=== PATIENT | female | born 1950 | race Two or more races ===

== ENCOUNTER 2025-01-15 12:20 | Inpatient (IN) | payer OTHER, MEDICAID ==
[~2025-01-15] VITALS: Ht 167.6 cm; Wt 133.2 kg
--- NOTE | 2025-01-15 12:29 | ED.PDOC ---
History of Present Illness HPI Comments 74 year old female with a history of Sciatica, CVA, HTN, DM, and Vertigo was BIBA for the c/c of 02/01 Lower Back pain. Pt states that her pain started yesterday but has proceeded to worsen today with no alleviating factors at this time. No other symptoms or modifying factors reported at this time. Time Seen by MD: 12:26 Reviewed Notes: Nurses Notes, Waste Disposal Attendant Notes, Medications, Allergies Allergies: Coded Allergies: NO KNOWN ALLERGIES (Unverified , 01/15/25) Information Source: Patient, Emergency Med Personnel Mode of Arrival: EMS Severity: Moderate Timing: Days Duration: Since onset, Days Prehospital treatment: None Past Medical History PAST MEDICAL HISTORY: Arthritis, CVA, DM, HTN Surgical History: NAT INSTRUCTOR History: No Pertinent NAT INSTRUCTOR History Family History Family History: Reviewed,noncontributory to illness, No family hx of Cancer, No family hx of DM, No family hx of Heart randa, No family hx of HTN, No family hx ofKidney randa, No family hx of Liver randa, No family hx of Lung randa, No family hx of Stroke Social History Smoker: Non-Smoker Alcohol: Denies ETOH Use Drugs: Denies Drug Use Lives In: Home Constitutional: denies: chills, diaphoresis, fatigue, fever, malaise, sweats, weakness, others EENTM: denies: blurred vision, double vision, ear bleeding, ear discharge, ear drainage, ear pain, ear ringing, eye pain, eye redness, hearing loss, mouth pain, mouth swelling, nasal discharge, nose bleeding, nose congestion, nose pain, photophobia, tearing, throat pain, throat swelling, voice changes, others Respiratory: denies: cough, hemoptysis, orthopnea, SOB at rest, shortness of breath, SOB with excertion, stridor, wheezing, others Cardiovascular: denies: chest pain, dizzy spells, diaphoresis, Dyspnea on exertion, edema, irregular heart beat, left arm pain, lightheadedness, palpitations, PND, syncope, others Gastrointestinal: denies: abdomen distended, abdominal pain, blood streaked bowels, constipated, diarrhea, dysphagia, difficulty swallowing, hematemesis, melena, nausea, poor appetite, poor fluid intake, rectal bleeding, rectal pain, vomiting, others Genitourinary: denies: abnormal vagina bleeding, burning, dyspareunia, dysuria, flank pain, frequency, hematuria, incontinence, pain, , vagina discharge, urgency, others Neurological: denies: dizziness, fainting, headache, left sided numbness, left sided weakness, numbness, paresthesia, pre-existing deficit, right sided numbness, right sided weakness, seizure, speech problems, tingling, tremors, weakness, others Musculoskeletal: reports: back pain; denies: gout, joint pain, joint swelling, muscle pain, muscle stiffness, neck pain, others Integumetry: denies: bruises, change in color, change in hair/nails, dryness, laceration, lesions, lumps, rash, wounds, others Allergic/Immunocompromised: denies: Difficulty Healing, Frequent Infections, Hives, Itching, others Hematologic/Lymphatic: denies: anemia, blood clots, easy bleeding, easy bruising, swollen glands, others Endocrine: denies: excessive hunger, excessive sweating, excessive thirst, excessive urination, flushing, intolerance to cold, intolerance to heat, unexplained weight gain, unexplained weight loss, others Psychiatric: denies: anxiety, bipolar disorder, depression, hopeless, panic disorder, schizophrenia, sleepless, suicidal, others All Other Systems: Reviewed and Negative Physical Exam General Appearance: Moderate Distress, Obese HEENT: Normal ENT Inspection, Pharynx Normal, TMs Normal Neck: Full Range of Motion, Non-Tender, Normal, Normal Inspection Respiratory: Chest Non-Tender, Lungs Clear, No Accessory Muscle Use, No Respiratory Distress, Normal Breath Sounds Cardiovascular: No Edema, No JVD, No Murmur, No Gallop, Normal Peripheral Pulses, Regular Rate/Rhythm Breast Exam: Deferred Gastrointestinal: No Organomegaly, Non Tender, No Pulsatile Mass, Normal Bowel Sounds, Soft Genitalia: Deferred Pelvic: Deferred Rectal: Deferred Extremities: No calf tenderness, Normal capillary refill, No pedal edema Musculoskeletal : Location: Right Extremity Location: Back Apperance: Limited ROM, Tenderness: Moderate Neurologic: Alert, activities attendant II-XII nml as Tested, No Motor Deficits, Normal Affect, Normal Mood, No Sensory Deficits Cerebellar Function: Normal Reflexes: Normal Skin: Dry, Normal Color, Warm Lymphatic: No Adenopathy Was a procedure done? Was a procedure done?: No Differential Dx Considerations may include: Intractable back pain, generalized weakness X-Ray, Labs, Meds, VS Vital Signs Date Time Temp Pulse Resp B/P (MAP) Pulse Ox O2 Delivery O2 Flow Rate FiO2 01/15/25 13:21 Room Air* 0 21 01/15/25 13:19 95 18 145/77 01/15/25 12:30 98.1 95 18 145/77 (99) 95 98.1 Current Medications Medications (Trade) Dose Ordered Sig/Terri Route Start Time Stop Time Status Last Admin Hydromorphone HCl (Dilaudid Injection) 0.5 mg ONCE ONCE IV 01/15/25 12:30 01/15/25 12:33 DC 01/15/25 13:19 Sodium Chloride 500 ml @ 500 mls/hr Q1H ONCE IV 01/15/25 12:30 01/15/25 13:29 DC 01/15/25 12:30 Ondansetron HCl (Zofran) 4 mg ONCE ONCE IV 01/15/25 12:30 01/15/25 12:33 DC 01/15/25 13:18 The patient was given Dilaudid 0.5 mg IV push The patient was given normal saline The patient was given Zofran 4 mg IV push The patient is unable to get up or move around. The patient is being admitted for intractable back pain Images Reviewed?: Images reviewed and evaluated by me Time of 1ST Reevaluation: 12:57 Reevaluation 1ST: Unchanged Patient Education/Counseling: Diagnosis, Treatment, Prognosis Family Education/Counseling: No Family Present SEPSIS Sepsis Screen Physician Orders Urinalysis (01/15/25 12:29) Heplock Iv (01/15/25 12:29) Vital Signs Date Time Temp Pulse Resp B/P (MAP) Pulse Ox O2 Delivery O2 Flow Rate FiO2 01/15/25 13:21 Room Air* 0 21 01/15/25 13:19 95 18 145/77 01/15/25 12:30 98.1 95 18 145/77 (99) 95 98.1 Medications Medications Dose Ordered Sig/Terri Route Start Time Stop Time Status Last Admin Dose Admin Hydromorphone HCl 0.5 mg ONCE ONCE IV 01/15/25 12:30 01/15/25 12:33 DC 01/15/25 13:19 Ondansetron HCl 4 mg ONCE ONCE IV 01/15/25 12:30 01/15/25 12:33 DC 01/15/25 13:18 Sodium Chloride 500 ml @ 500 mls/hr Q1H ONCE IV 01/15/25 12:30 01/15/25 13:29 DC 01/15/25 12:30 Departure 1 Departure Time of Disposition: 19:02 Impression: Primary Impression: Intractable back pain Disposition: ADMITTED INPATIENT Admit to: Med Surg Condition: Fair Critical Care Note Critical Care Time?: No Stability Stability form required: No Heart Score Heart Score: Heart Score Response (Comments) Value History N/A 0 EKG N/A 0 Age N/A 0 Risk Factors N/A 0 Troponin N/A 0 Total 0 I personally scribed for JONNY POLK MD ([email or web address]) on 01/15/25 at 12:29. Electronically submitted by Esdras Pat ([email or web address]). JONYN POLK MD Jan 15, 2025 12:29
[2025-01-15] MEDS: SODIUM CHLORIDE 0.9% 500 ML IV ONE (12:30)
[2025-01-15] MEDS: ONDANSETRON HCL 4 MG/2 ML VIAL IV ONE (13:18)
[2025-01-15] MEDS: HYDROmorphone HCL 2 MG/ML VL/or syr IV ONE (13:19)
[2025-01-15] MEDS ORDERED: MORPHINE SULFATE INJ 2 MG/ml SYRG IV PRN ×2 (19:15→20:15)
[2025-01-15 20:06] LABS: Basophils # (auto) 0 10 ^3/uL (0-0.2); Eosinophils # (auto) 0.1 10 ^3/uL (0-0.8); Hematocrit 42.2 % (36.0-46.0); Hemoglobin 13.2 g/dL (12.2-16.2); Lymphocytes # (auto) 1.3 10 ^3/uL (0.4-5.4); Mean Corpuscular Hemoglobin 25.6 pg (28.0-32.0); Monocytes # (auto) 0.7 10 ^3/uL (0-1.3)
[2025-01-15 20:08] LABS: Basophils % (auto) 0.5 % (0.0-2.0); Eosinophils % (auto) 1.5 % (0.0-7.0); Lymphocytes % (auto) 20.7 % (10.0-50.0); Mean Corpuscular Hgb Conc. 31.2 g/dL (32.0-36.0); Mean Corpuscular Volume 82.2 fL (80.0-100.0); Monocytes % (auto) 10.9 % (0.0-12.0); Neutrophils # (auto) 4.2 10 ^3/uL (1.6-8.6); Neutrophils % (auto) 66.4 % (37.0-80.0); Nucleated Red Blood Cells % 0.2 %; Platelet Count (auto) 249 10^3/uL (140-450); Red Blood Cells 5.13 10^6/uL (4.0-5.20); White Blood Cell 6.3 10^3/uL (4.4-10.8)
--- NOTE | 2025-01-15 20:08 | DVHHP2 ---
History of Present Illness Reason for Visit: Intractable back pain History of Present Illness The patient is a 74-year-old female with past medical history of hypertension, CVA, DM, and arthritis who presented to [facility] ED with complaint of lower back pain. Patient reports that her pain started yesterday but has proceeded to worsen today with no alleviating factors at this time. Patient was seen and evaluated in the ED, laboratory data shows WBC 6.3, platelets 249, blood pressure 145/77, heart rate 95, temperature 98.1 F, O2 saturation 95% on oxygen. Patient was given Dilaudid 1 mg IV x1, please see medication orders section in the computer. On my assessment, patient denied chest pain, no headache, no dizziness, no diaphoresis, currently on oxygen, no abdominal pain, no diarrhea, no nausea, no vomiting, no fever, no chills. Patient was admitted for further evaluation and medical management. Past Medical History Arthritis, CVA, DM, HTN Past Surgical History Family History Reviewed, noncontributory to the management of this case. Past Social History The patient lives at home, denies smoking, alcohol or illicit drugs abuse. Review of Systems Constitutional: Yes: Weakness; No: Fever, Chills, Sweats, Malaise, Other Eyes: No: Pain, Vision change, Conjunctivae inflammation, Eyelid inflammation, Other, Redness ENT: No: Ear pain, Ear discharge, Nose pain, Nose discharge, Nose congestion, Mouth pain, Mouth swelling, Throat pain, Throat swelling, Other Respiratory: Shortness of breath; No: Cough, Dry, SOB with excertion, Wheezing, Hemoptysis, Pleuritic Pain, Sputum, Wheezing, Other Cardiovascular: No: Chest Pain, Palpitations, Orthopnea, Paroxysmal Noc. Dyspnea, Edema, Lt Headedness, Other Gastrointestinal: No: Nausea, Vomiting, Abdominal Pain, Diarrhea, Constipation, Melena, Hematochezia, Other Genitourinary: No Dysuria, No Frequency, No Incontinence, No Hematuria, No Retention, No Other Musculoskeletal: back pain; No: other, neck pain, shoulder pain, arm pain, hand pain, leg pain, foot pain Skin: No: Rash, Lesions, Jaundice, Bruising, Other Neurological: No: Weakness, Numbness, Incoordination, Change in speech, Confusion, Seizures, Other Allergies: Coded Allergies: NO KNOWN ALLERGIES (Unverified , 01/15/25) Medications Current Medications Medications Dose Ordered Sig/Terri Route Start Time Stop Time Status Last Admin Dose Admin Sodium Chloride 1,000 ml @ 60 mls/hr [id number] IV 01/15/25 19:15 UNV Acetaminophen/ Hydrocodone Bitart 1 tab Q4HP PRN PO 01/15/25 19:15 UNV Ondansetron HCl 4 mg Q4HP PRN IV 01/15/25 19:15 UNV Docusate Sodium 100 mg BIDPRN PRN PO 01/15/25 19:15 UNV Acetaminophen 650 mg Q6HP PRN PO 01/15/25 19:15 UNV Morphine Sulfate 2 mg Q4HPRN PRN IV 01/15/25 19:15 UNV Aspirin 81 mg DAILY PO 01/16/25 10:00 UNV Hydralazine HCl 10 mg Q6HP PRN IV 01/15/25 19:15 UNV Metoprolol Tartrate 25 mg BID PO 01/15/25 22:00 UNV Exam Vital Signs Vital Signs Date Time Temp Pulse Resp B/P (MAP) Pulse Ox O2 Delivery O2 Flow Rate FiO2 01/15/25 19:38 70 16 176/59 (98) 89 01/15/25 13:21 Room Air* 0 21 01/15/25 12:30 98.1 98.1 General Appearance: Alert, Oriented X3, Cooperative, No acute distress HEENT: Atraumatic, PERRLA, EOMI, Mucous membr. moist/pink Respiratory: Normal air movement Cardiovascular: Regular rate, Normal S1, Normal S2, No murmurs Abdominal: Normal bowel sounds, Soft, No tenderness, No hepatospenomegaly, No masses Extremities: No clubbing, No cyanosis, No edema, Normal pulses, No tenderness/swelling Skin: No rashes, No breakdown, No significant lesion Neuro: Normal speech, Normal tone, Sensation intact, Cranial nerves 3-12 NL, Reflexes 2+, Other (Generalized weakness) Psych/Mental Status: Mental status NL, Mood NL Labs/Xrays Labs Test 01/15/25 19:55 Range/Units Assessment/Plan Assessment/Plan Intractable back pain Shortness of breaths Generalized weakness Plan 1. Admit to med surge unit 2. Breathing treatment 3. Pain control management 4. Management of fluids and electrolytes 5. Consultation for hospitalist 6. Diagnostic tests chest x-ray 7. DVT prophylaxis on SCDs 8. Repeat labs CBC, CMP in a.m. 9. Continue with current medical management 10. Treatment plan discussed with patient and RN. Patient verbalized understanding. Plan discussed with: Patient, Other (RN) My Orders Orders - CORNEL SALEEM DNP Procedure Category Date Status Time Complete Blood Count LAB 01/15/25 In Process 19:11 Comprehensive LAB 01/15/25 In Process Metabolic Panel 19:11 Allergies EFREM 01/15/25 In Process 19:13 Code Status CODE 01/15/25 Transmitted 19:13 Sodium Chloride 0.9% PHA 01/15/25 Logged 19:15 Oxygen Per Hour RT 01/15/25 Transmitted 19:13 Hydrocodone-Acet PHA 01/15/25 Logged 5/325mg Tab ([place] 19:15 Ondansetron Hcl PHA 01/15/25 Logged (Zofran) 19:15 Docusate Sodium PHA 01/15/25 Logged Capsule ([place] 19:15 Fall Risk Precautions EFREM 01/15/[address] 19:13 Complete Blood Count LAB 01/16/25 Verified 04:00 Comprehensive LAB 01/16/25 Verified Metabolic Panel 04:00 Cardiac DIET 01/16/25 Transmitted Diet-2gna,Lofat,Lochol Breakfast Condition: Serious EFREM 01/15/25 In Process 19:13 Acetaminophen Tablet PHA 01/15/25 Logged (Tylenol Tablet) 19:15 Maintain Bed Rest EFREM 01/15/25 In Process 19:13 Morphine Sulfate PHA 01/15/25 Logged Injection 19:15 Sequential EFREM 01/15/25 In Process Compression Device Aspirin Tablet PHA 01/16/25 Logged 10:00 Consistent DIET 01/16/25 Transmitted Carb(Ccho)Diabetes Breakfast Hydralazine Injection PHA 01/15/25 Logged (Apresoline Inject 19:15 Metoprolol Tartrate PHA 01/15/25 Logged Tablet (Lopressor Ta 22:00 Problem List: (1) Intractable back pain (2) Shortness of breath (3) Generalized weakness Date of Service: Jan 15, 2025 Billing Provider: CORNEL SALEEM DNP Common Visit Codes: [id number] INP/OBS CARE (HIGH) CORNEL SALEEM DNP Jan 15, 2025 20:08
[2025-01-15] MEDS ORDERED: NITROGLYCERIN 0.4 MG SL TAB SL PRN (20:15)
[2025-01-15 20:22] LABS: Albumin 3.7 g/dL (3.2-4.8); Alkaline Phosphatase 76 U/L (46-116); Anion Gap 14 (5-15); Aspartate Aminotransferase 22 U/L (<34); Bilirubin, Total 0.5 mg/dL (0.2-1.0); Calcium 9.4 mg/dL (8.7-10.4); Carbon Dioxide 21 mmol/L (20-31); Chloride 106 mmol/L (98-107); Glucose 105 mg/dL (74-106); Potassium 3.5 mmol/L (3.5-5.1); Sodium 141 mmol/L (136-145); Total Protein 6.7 g/dL (5.7-8.2)
[2025-01-15 20:29] LABS: Blood Urea Nitrogen < 5 mg/dL (9-23)
[2025-01-15 20:30] LABS: Alanine Aminotransferase < 9 U/L (7-40)
[2025-01-15] MEDS ORDERED: DEXTROSE (50%) 50ML SYRG IV PRN (20:30)
[2025-01-15] MEDS ORDERED: IPRATROPIUM BROM 0.5 MG/2.5ML INH SOL NEB PRN (20:30)
[2025-01-15] MEDS ORDERED: ALBUTEROL SULF 2.5 MG/0.5ML(0.5%) NEB SOLN NEB PRN (20:30)
[2025-01-15] MEDS: SODIUM CHLORIDE 0.9% 1,000 ML IV SCH (20:53)
[2025-01-15 20:59] LABS: Urine Bacteria None Seen /hpf (None Seen)
[2025-01-15 21:39] VITALS: BP 145/77; PULSE 70; RESP 16; TEMP 98.1; O2SAT 95
[2025-01-15 21:42] LABS: Urine Blood Negative /uL (Negative); Urine Clarity Clear (Clear); Urine Color Light-Yellow (Yellow); Urine Protein, UAD TRACE (Negative); Urine Specific Gravity 1.019 (1.001-1.035); Urine Squamous Epithelial Cell FEW /hpf (<5); Urine Urobilinogen Normal (Negative); Urine WBC < 1 /HPF (0-5)
[2025-01-15] MEDS: InsuLIN REG 1unit/0.01ml Soln (100units/ml) SC SCH (22:30)
[2025-01-15] MEDS: ACCU-CHEK COMFORT CURVE STRIP VI SCH (22:45)
[2025-01-15] MEDS: METOPROLOL TARTRATE 25 MG TAB PO SCH (23:45)
[2025-01-15] MEDS ORDERED: MORPHINE SULFATE 4 MG/ML SYR/VIAL IV PRN (23:45)
[2025-01-16] VITALS (9 sets, daily range): BP systolic 135–149; BP diastolic 51–68; PULSE 63–68; RESP 16–20; TEMP 97.1–98.5; O2SAT 92–96
[2025-01-16] MEDS: MORPHINE SULFATE 4 MG/ML SYR/VIAL IV PRN (03:56)
[2025-01-16] MEDS: hydrALAZINE HCL 20 MG/ML VL IV PRN (03:57)
[2025-01-16] MEDS: HYDROcodone-ACET 5/325MG TAB PO PRN (03:57)
[2025-01-16] MEDS: ACETAMINOPHEN 325 MG TAB PO PRN (03:58)
[2025-01-16 05:42] LABS: Basophils # (auto) 0 10 ^3/uL (0-0.2); Hemoglobin 12.7 g/dL (12.2-16.2); Mean Corpuscular Hemoglobin 25.7 pg (28.0-32.0); Monocytes # (auto) 0.7 10 ^3/uL (0-1.3); Neutrophils # (auto) 5.2 10 ^3/uL (1.6-8.6); Nucleated Red Blood Cells % 0.1 %
[2025-01-16 05:48] LABS: Basophils % (auto) 0.6 % (0.0-2.0); Eosinophils # (auto) 0.2 10 ^3/uL (0-0.8); Eosinophils % (auto) 2.1 % (0.0-7.0); Lymphocytes # (auto) 1.2 10 ^3/uL (0.4-5.4); Mean Corpuscular Hgb Conc. 31.7 g/dL (32.0-36.0); Mean Corpuscular Volume 81.2 fL (80.0-100.0); Monocytes % (auto) 9.3 % (0.0-12.0); Platelet Count (auto) 269 10^3/uL (140-450); Red Blood Cells 4.93 10^6/uL (4.0-5.20); Red Cell Distribution Width 18.4 % (11.8-14.3); White Blood Cell 7.2 10^3/uL (4.4-10.8)
[2025-01-16 06:07] LABS: Albumin 3.5 g/dL (3.2-4.8); Alkaline Phosphatase 73 U/L (46-116); Anion Gap 15 (5-15); Aspartate Aminotransferase 21 U/L (<34); Chloride 105 mmol/L (98-107); Potassium 3.6 mmol/L (3.5-5.1); Sodium 140 mmol/L (136-145); Total Protein 6.4 g/dL (5.7-8.2)
[2025-01-16 06:08] LABS: Bilirubin, Total 0.6 mg/dL (0.2-1.0)
[2025-01-16 06:26] LABS: Alanine Aminotransferase 9 U/L (7-40); BUN/Creatinine Ratio 10.9 (10.0-20.0); Blood Urea Nitrogen < 5 mg/dL (9-23); Calcium 8.6 mg/dL (8.7-10.4); Carbon Dioxide 20 mmol/L (20-31); Glucose 111 mg/dL (74-106)
[2025-01-16] MEDS: ONDANSETRON HCL 4 MG/2 ML VIAL IV PRN (08:02)
[2025-01-16] MEDS: ASPirin 81 mg TAB PO SCH (09:57)
--- NOTE | 2025-01-16 14:55 | DVHPN2 ---
Reviewed: Care Plan, H&P, Labs, Medications, Previous Orders, Radiology Changes from previous H/P or p: No Changes General: Per HPI Eyes: No Pain, No Vision change, No Conjunctivae inflammation, No Eyelid inflammation, No Other, No Redness ENT: No Ear pain, No Ear discharge, No Nose pain, No Nose discharge, No Nose congestion, No Mouth pain, No Mouth swelling, No Throat pain, No Throat swelling, No Other Cardiovascular: No Chest Pain, No Palpitations, No Orthopnea, No Paroxysmal Noc. Dyspnea, No Edema, No Lt Headedness, No Other Respiratory: No Cough, No Dry; Shortness of breath; No SOB with excertion, No Wheezing, No Hemoptysis, No Pleuritic Pain, No Sputum, No Other Gastrointestinal: No Nausea, No Vomiting, No Abdominal Pain, No Diarrhea, No Constipation, No Melena, No Hematochezia, No Other Genitourinary: No Dysuria, No Frequency, No Incontinence, No Hematuria, No Retention, No Other Musculoskeletal: No other, No neck pain, No shoulder pain, No arm pain; back pain; No hand pain, No leg pain, No foot pain Skin: No Rash, No Lesions, No Jaundice, No Bruising, No Other Objective Vitals Vital Signs Date Time Temp Pulse Resp B/P (MAP) Pulse Ox O2 Delivery O2 Flow Rate FiO2 01/16/25 13:00 97.2 65 18 135/68 (90) 93 97.2 01/16/25 11:53 Room Air* 0 21 General Appearance: Alert, Oriented X3, Cooperative Cardiovascular: Regular rate Abdomen: Normal bowel sounds Medications Current Medications Medications Dose Ordered Sig/Terri Route Start Time Stop Time Status Last Admin Dose Admin Sodium Chloride 1,000 ml @ 60 mls/hr [id number] IV 01/15/25 19:15 01/16/25 12:15 60 MLS/HR Acetaminophen/ Hydrocodone Bitart 1 tab Q4HP PRN PO 01/15/25 19:15 01/16/25 03:57 1 TAB Ondansetron HCl 4 mg Q4HP PRN IV 01/15/25 19:15 01/16/25 08:02 4 MG Docusate Sodium 100 mg BIDPRN PRN PO 01/15/25 19:15 Acetaminophen 650 mg Q6HP PRN PO 01/15/25 19:15 01/16/25 03:58 650 MG Morphine Sulfate 2 mg Q4HPRN PRN IV 01/15/25 19:15 Cancel Aspirin 81 mg DAILY PO 01/16/25 10:00 01/16/25 09:57 81 MG Hydralazine HCl 10 mg Q6HP PRN IV 01/15/25 19:15 01/16/25 03:57 10 MG Metoprolol Tartrate 25 mg BID PO 01/15/25 22:00 01/16/25 09:57 25 MG Nitroglycerin 0.4 mg Q5MINP PRN SL 01/15/25 20:15 Morphine Sulfate 2 mg Q30M PRN IV 01/15/25 20:15 Cancel Albuterol 2.5 mg Q4HPRN PRN NEB 01/15/25 20:30 Ipratropium [place] 0.5 mg Q4HPRN PRN NEB 01/15/25 20:30 Diagnostic Test (Pha) 1 strip ACHS 01/15/25 22:00 01/16/25 11:21 1 STRIP Insulin Human Regular ACHS SC 01/15/25 22:00 01/16/25 11:20 3 UNITS Dextrose 50 ml UD PRN IV 01/15/25 20:30 Morphine Sulfate 2 mg Q4HPRN PRN IV 01/15/25 23:45 Morphine Sulfate 2 mg [id number] PRN IV 01/15/25 23:45 01/16/25 06:44 2 MG Laboratory Results Laboratory Tests 01/16/25 05:10 Chemistry Test 01/15/25 19:55 01/16/25 05:10 Albumin 3.7 g/dL (3.2-4.8) 3.5 g/dL (3.2-4.8) Calcium Level 9.4 mg/dL (8.7-10.4) 8.6 mg/dL (8.7-10.4) L Total Protein 6.7 g/dL (5.7-8.2) 6.4 g/dL (5.7-8.2) LFT Test 01/15/25 19:55 01/16/25 05:10 Alanine Aminotransferase (ALT) < 9 U/L (7-40) 9 U/L (7-40) Alkaline Phosphatase 76 U/L (46-116) 73 U/L (46-116) Aspartate Amino Transferase (AST) 22 U/L (<34) 21 U/L (<34) Total Bilirubin 0.5 mg/dL (0.2-1.0) 0.6 mg/dL (0.2-1.0) Urinalysis Test 01/15/25 20:48 Urine Color Light-yellow (Yellow) Urine Clarity Clear (Clear) Urine pH 6.0 (5.0-9.0) Urine Specific [place] 1.019 (1.001-1.035) Urine Protein Trace (Negative) H Urine Ketones 4+ (Negative) H Urine Blood Negative /uL (Negative) Urine Nitrite Negative (Negative) Urine Bilirubin Negative (Negative) Urine Urobilinogen Normal mg/dL (Negative) Urine Leukocyte Esterase Negative /uL (Negative) Urine RBC <1 /hpf (0 - 4) Urine Microscopic WBC < 1 /HPF (0-5) Urine Squamous Epithelial Cells Few /hpf (<5) Urine Bacteria None seen /hpf (None Seen) Urine Glucose 4+ mg/dL (Normal) H Labs and/or images reviewed: Labs reviewed by me, Image(s) reviewed by me Assessment/Plan Assessment/Plan The patient is a 74-year-old female with past medical history of hypertension, CVA, DM, and arthritis who presented to [facility] ED with complaint of lower back pain. Patient reports that her pain started yesterday but has proceeded to worsen today with no alleviating factors at this time. Patient was seen and evaluated in the ED, laboratory data shows WBC 6.3, platelets 249, blood pressure 145/77, heart rate 95, temperature 98.1 F, O2 saturation 95% on oxygen. Patient was given Dilaudid 1 mg IV x1, please see medication orders section in the computer. On my assessment, patient denied chest pain, no headache, no dizziness, no diaphoresis, currently on oxygen, no abdominal pain, no diarrhea, no nausea, no vomiting, no fever, no chills. Patient was admitted for further evaluation and medical management. acute inIntractable back pain Shortness of breaths Generalized weakness Plan discussed with: Patient Date of Service: Jan 16, 2025 Billing Provider: JEANNETTE CAMACHO DO Common Visit Codes: [id number] INP/OBS CARE(HIGH) JEANNETTE CAMACHO DO Jan 16, 2025 14:55
[2025-01-17] VITALS (7 sets, daily range): BP systolic 129–161; BP diastolic 53–88; PULSE 70–78; RESP 15–20; TEMP 97.7–98.9; O2SAT 90–99
[2025-01-17] MEDS: DOCUSATE SOD 100 MG CAP PO PRN (10:07)
[2025-01-18] VITALS (9 sets, daily range): BP systolic 132–164; BP diastolic 51–80; PULSE 70–91; RESP 16–18; TEMP 37.1; O2SAT 91–96
[2025-01-18] MEDS ORDERED: MET25T PO (13:33)
[2025-01-19 01:00] VITALS: BP 143/66; PULSE 81; RESP 18; TEMP 98.9; O2SAT 92
[2025-01-19 05:00] VITALS: BP 166/80; PULSE 83; RESP 18; TEMP 98.5; O2SAT 95
[2025-01-19 08:10] VITALS: PULSE 106; O2SAT 92
[2025-01-19 09:00] VITALS: BP 145/71; PULSE 106; RESP 20; TEMP 97.5; O2SAT 92
[2025-01-19 10:10] VITALS: O2SAT 92
[2025-01-19 13:36] LABS: Base Excess -4.8 mmol/L (-2.0-3.0)
--- NOTE | 2025-01-28 21:20 | DVHPN2 ---
Reviewed: Care Plan, H&P, Labs, Medications, Previous Orders, Radiology Changes from previous H/P or p: No Changes General: Per HPI Eyes: No Pain, No Vision change, No Conjunctivae inflammation, No Eyelid inflammation, No Other, No Redness ENT: No Ear pain, No Ear discharge, No Nose pain, No Nose discharge, No Nose congestion, No Mouth pain, No Mouth swelling, No Throat pain, No Throat swelling, No Other Cardiovascular: No Chest Pain, No Palpitations, No Orthopnea, No Paroxysmal Noc. Dyspnea, No Edema, No Lt Headedness, No Other Respiratory: No Cough, No Dry; Shortness of breath; No SOB with excertion, No Wheezing, No Hemoptysis, No Pleuritic Pain, No Sputum, No Other Gastrointestinal: No Nausea, No Vomiting, No Abdominal Pain, No Diarrhea, No Constipation, No Melena, No Hematochezia, No Other Genitourinary: No Dysuria, No Frequency, No Incontinence, No Hematuria, No Retention, No Other Musculoskeletal: No other, No neck pain, No shoulder pain, No arm pain; back pain; No hand pain, No leg pain, No foot pain Skin: No Rash, No Lesions, No Jaundice, No Bruising, No Other Endocrine: Other Objective General Appearance: Alert, Oriented X3, Cooperative Cardiovascular: Regular rate Abdomen: Normal bowel sounds Medications Current Medications Medications Dose Ordered Sig/Terri Route Start Time Stop Time Status Last Admin Dose Admin Morphine Sulfate 2 mg Q4HPRN PRN IV 01/15/25 19:15 Cancel Morphine Sulfate 2 mg Q30M PRN IV 01/15/25 20:15 Cancel Albuterol 2.5 mg Q4HPRN PRN NEB 01/15/25 20:30 Cancel Ipratropium [place] 0.5 mg Q4HPRN PRN NEB 01/15/25 20:30 Cancel Laboratory Results Laboratory Tests 01/16/25 05:10 Urinalysis Test 01/15/25 20:48 Urine Color Light-yellow (Yellow) Urine Clarity Clear (Clear) Urine pH 6.0 (5.0-9.0) Urine Specific [place] 1.019 (1.001-1.035) Urine Protein Trace (Negative) H Urine Ketones 4+ (Negative) H Urine Blood Negative /uL (Negative) Urine Nitrite Negative (Negative) Urine Bilirubin Negative (Negative) Urine Urobilinogen Normal mg/dL (Negative) Urine Leukocyte Esterase Negative /uL (Negative) Urine RBC <1 /hpf (0 - 4) Urine Microscopic WBC < 1 /HPF (0-5) Urine Squamous Epithelial Cells Few /hpf (<5) Urine Bacteria None seen /hpf (None Seen) Urine Glucose 4+ mg/dL (Normal) H Assessment/Plan Assessment/Plan The patient is a 74-year-old female with past medical history of hypertension, CVA, DM, and arthritis who presented to [facility] ED with complaint of lower back pain. Patient reports that her pain started yesterday but has proceeded to worsen today with no alleviating factors at this time. Patient was seen and evaluated in the ED, laboratory data shows WBC 6.3, platelets 249, blood pressure 145/77, heart rate 95, temperature 98.1 F, O2 saturation 95% on oxygen. Patient was given Dilaudid 1 mg IV x1, please see medication orders section in the computer. On my assessment, patient denied chest pain, no headache, no dizziness, no diaphoresis, currently on oxygen, no abdominal pain, no diarrhea, no nausea, no vomiting, no fever, no chills. Patient was admitted for further evaluation and medical management. acute inIntractable back pain Shortness of breaths Generalized weakness Plan discussed with: Patient Date of Service: Jan 18, 2025 Billing Provider: JEANNETTE CAMACHO DO Common Visit Codes: [id number] INP/OBS CARE(HIGH) JEANNETTE CAMACHO DO Jan 28, 2025 21:20
--- NOTE | 2025-01-28 21:20 | DVHPN2 ---
Reviewed: Care Plan, H&P, Labs, Medications, Previous Orders, Radiology Changes from previous H/P or p: No Changes General: Per HPI Eyes: No Pain, No Vision change, No Conjunctivae inflammation, No Eyelid inflammation, No Other, No Redness ENT: No Ear pain, No Ear discharge, No Nose pain, No Nose discharge, No Nose congestion, No Mouth pain, No Mouth swelling, No Throat pain, No Throat swelling, No Other Cardiovascular: No Chest Pain, No Palpitations, No Orthopnea, No Paroxysmal Noc. Dyspnea, No Edema, No Lt Headedness, No Other Respiratory: No Cough, No Dry; Shortness of breath; No SOB with excertion, No Wheezing, No Hemoptysis, No Pleuritic Pain, No Sputum, No Other Gastrointestinal: No Nausea, No Vomiting, No Abdominal Pain, No Diarrhea, No Constipation, No Melena, No Hematochezia, No Other Genitourinary: No Dysuria, No Frequency, No Incontinence, No Hematuria, No Retention, No Other Musculoskeletal: No other, No neck pain, No shoulder pain, No arm pain; back pain; No hand pain, No leg pain, No foot pain Skin: No Rash, No Lesions, No Jaundice, No Bruising, No Other Objective General Appearance: Alert, Oriented X3, Cooperative Cardiovascular: Regular rate Abdomen: Normal bowel sounds Medications Current Medications Medications Dose Ordered Sig/Terri Route Start Time Stop Time Status Last Admin Dose Admin Morphine Sulfate 2 mg Q4HPRN PRN IV 01/15/25 19:15 Cancel Morphine Sulfate 2 mg Q30M PRN IV 01/15/25 20:15 Cancel Albuterol 2.5 mg Q4HPRN PRN NEB 01/15/25 20:30 Cancel Ipratropium [place] 0.5 mg Q4HPRN PRN NEB 01/15/25 20:30 Cancel Laboratory Results Laboratory Tests 01/16/25 05:10 Urinalysis Test 01/15/25 20:48 Urine Color Light-yellow (Yellow) Urine Clarity Clear (Clear) Urine pH 6.0 (5.0-9.0) Urine Specific [place] 1.019 (1.001-1.035) Urine Protein Trace (Negative) H Urine Ketones 4+ (Negative) H Urine Blood Negative /uL (Negative) Urine Nitrite Negative (Negative) Urine Bilirubin Negative (Negative) Urine Urobilinogen Normal mg/dL (Negative) Urine Leukocyte Esterase Negative /uL (Negative) Urine RBC <1 /hpf (0 - 4) Urine Microscopic WBC < 1 /HPF (0-5) Urine Squamous Epithelial Cells Few /hpf (<5) Urine Bacteria None seen /hpf (None Seen) Urine Glucose 4+ mg/dL (Normal) H Assessment/Plan Assessment/Plan The patient is a 74-year-old female with past medical history of hypertension, CVA, DM, and arthritis who presented to [facility] ED with complaint of lower back pain. Patient reports that her pain started yesterday but has proceeded to worsen today with no alleviating factors at this time. Patient was seen and evaluated in the ED, laboratory data shows WBC 6.3, platelets 249, blood pressure 145/77, heart rate 95, temperature 98.1 F, O2 saturation 95% on oxygen. Patient was given Dilaudid 1 mg IV x1, please see medication orders section in the computer. On my assessment, patient denied chest pain, no headache, no dizziness, no diaphoresis, currently on oxygen, no abdominal pain, no diarrhea, no nausea, no vomiting, no fever, no chills. Patient was admitted for further evaluation and medical management. acute inIntractable back pain Shortness of breaths Generalized weakness Plan discussed with: Patient Date of Service: Jan 17, 2025 Billing Provider: JEANNETTE CAMACHO DO Common Visit Codes: [id number] INP/OBS CARE(HIGH) JEANNETTE CAMACHO DO Jan 28, 2025 21:20
--- NOTE | 2025-01-28 21:21 | DVHDS2 ---
Discharge Summary Date of Admission Jan 15, 2025 at 20:07 Date of Discharge: Jan 19, 2025 Labs/Diagnostic Data: Laboratory Results Test 01/19/25 13:25 01/19/25 11:23 01/16/25 05:10 01/15/25 20:48 Blood Gas Specimen Type Arterial Blood Gas Sample Site Left radial Blood Gas Patient Temperature 37.0 Arterial Blood Date Drawn [id number] Arterial Blood pH 7.380 (7.350-7.450) Arterial Blood Partial Pressure CO2 33.6 mmHg (32.0-45.0) Arterial Blood Partial Pressure O2 61.6 mmHg (83.0-108.0) Arterial Blood HCO3 19.4 mmol/L (21.0-28.0) Arterial Blood Oxygen Saturation 90.4 % (94.0-98.0) Arterial Blood Base Excess -4.8 mmol/L (-2.0-3.0) Arterial Blood Oxyhemoglobin 88.6 % (94.0-98.0) Arterial Blood Carboxyhemoglobin 1.6 % (0.5-1.5) Arterial Blood Methemoglobin 0.4 % (0.0-1.5) [place] Test Yes Blood Gas Total Hemoglobin 14.20 g/dL (12.0-16.0) Blood Gas Modality Room air FiO2 % 21.0 POC Glucose 188 mg/dl (70-106) White Blood Count 7.2 10^3/uL (4.4-10.8) Red Blood Count 4.93 10^6/uL (4.0-5.20) Hemoglobin 12.7 g/dL (12.2-16.2) Hematocrit 40.0 % (36.0-46.0) Mean Corpuscular Volume 81.2 fL (80.0-100.0) Mean Corpuscular Hemoglobin 25.7 pg (28.0-32.0) Mean Corpuscular Hemoglobin Concent 31.7 g/dL (32.0-36.0) Red Cell Distribution Width 18.4 % (11.8-14.3) Platelet Count 269 10^3/uL (140-450) Mean Platelet Volume 8.2 fL (6.9-10.8) Neutrophils (%) (Auto) 72.0 % (37.0-80.0) Lymphocytes (%) (Auto) 16.0 % (10.0-50.0) Monocytes (%) (Auto) 9.3 % (0.0-12.0) Eosinophils (%) (Auto) 2.1 % (0.0-7.0) Basophils (%) (Auto) 0.6 % (0.0-2.0) Neutrophils # (Auto) 5.2 10 ^3/uL (1.6-8.6) Lymphocytes # (Auto) 1.2 10 ^3/uL (0.4-5.4) Monocytes # (Auto) 0.7 10 ^3/uL (0-1.3) Eosinophils # (Auto) 0.2 10 ^3/uL (0-0.8) Basophils # (Auto) 0 10 ^3/uL (0-0.2) Nucleated Red Blood Cells 0.1 % Sodium Level 140 mmol/L (136-145) Potassium Level 3.6 mmol/L (3.5-5.1) Chloride Level 105 mmol/L (98-107) Carbon Dioxide Level 20 mmol/L (20-31) Anion Gap 15 (5-15) Blood Urea Nitrogen < 5 mg/dL (9-23) Creatinine 0.46 mg/dL (0.550-1.02) Glomerular Filtration Rate Calc 100 mL/min (>90) BUN/Creatinine Ratio 10.9 (10.0-20.0) Serum Glucose 111 mg/dL (74-106) Calcium Level 8.6 mg/dL (8.7-10.4) Total Bilirubin 0.6 mg/dL (0.2-1.0) Aspartate Amino Transferase (AST) 21 U/L (<34) Alanine Aminotransferase (ALT) 9 U/L (7-40) Alkaline Phosphatase 73 U/L (46-116) Total Protein 6.4 g/dL (5.7-8.2) Albumin 3.5 g/dL (3.2-4.8) Urine Color Light-yellow (Yellow) Urine Clarity Clear (Clear) Urine pH 6.0 (5.0-9.0) Urine Specific [place] 1.019 (1.001-1.035) Urine Protein Trace (Negative) Urine Ketones 4+ (Negative) Urine Blood Negative /uL (Negative) Urine Nitrite Negative (Negative) Urine Bilirubin Negative (Negative) Urine Urobilinogen Normal mg/dL (Negative) Urine Leukocyte Esterase Negative /uL (Negative) Urine RBC <1 /hpf (0 - 4) Urine Microscopic WBC < 1 /HPF (0-5) Urine Squamous Epithelial Cells Few /hpf (<5) Urine Bacteria None seen /hpf (None Seen) Urine Glucose 4+ mg/dL (Normal) Other Laboratory Tests 01/16/25 05:10 Brief Hx & Hospital Course: The patient is a 74-year-old female with past medical history of hypertension, CVA, DM, and arthritis who presented to [facility] ED with complaint of lower back pain. Patient reports that her pain started yesterday but has proceeded to worsen today with no alleviating factors at this time. Patient was seen and evaluated in the ED, laboratory data shows WBC 6.3, platelets 249, blood pressure 145/77, heart rate 95, temperature 98.1 F, O2 saturation 95% on oxygen. Patient was given Dilaudid 1 mg IV x1, please see medication orders section in the computer. On my assessment, patient denied chest pain, no headache, no dizziness, no diaphoresis, currently on oxygen, no abdominal pain, no diarrhea, no nausea, no vomiting, no fever, no chills. Patient was admitted for further evaluation and medical management. acute inIntractable back pain Shortness of breaths Generalized weakness discharged to hospice Condition at Discharge: Fair Final Diagnosis/Problems List see above Discharge Disposition: Hospice - Home Discharge Instruct/Medications Diet: Cardiac 2g Na,low cholest Activity: No Restrictions, As Tolerated Scheduled Metoprolol Tartrate (Lopressor), 25 MG PO BID Discharge Statement: "Patient was advised to return to the ER or call 911 if any headaches, dizziness, shortness of breath, chest pain, abdominal pain, bleeding, fevers, or worsening of medical condition. Patient was counseled about treatment plan, medications, possible side effects, patientverbalized understanding. All questions were answered to the best of my ability. This discharge took greater then 30 minutes in planning, reviewing documentation, counseling the patient, and discussing with other team members." ASSESSMENT ASSESSMENT Assessment Date of Service: Jan 19, 2025 Billing Provider: JEANNETTE CAMACHO DO Common Visit Codes: [id number] DISCH DAY >30min JEANNETTE CAMACHO DO Jan 28, 2025 21:21
== END 2025-01-19 15:15 | disposition hospice, home (50) | DRG 554 ==
LOC: EDBD 12:20 → ER 12:20 → OVERFLOW 20:07 → WEST WING 01-16 10:50
PROVIDERS: ADMIT Internal Medicine; ATTEND Internal Medicine
DX: M19.09 Primary osteoarthritis, other specified site (principal); Z68.41 Body mass index [BMI] 40.0-44.9, adult; J45.909 Unspecified asthma, uncomplicated; I10 Essential (primary) hypertension; Z86.73 Personal history of transient ischemic attack (TIA), and cerebral infarction without residual deficits; Z79.899 Other long term (current) drug therapy; E11.65 Type 2 diabetes mellitus with hyperglycemia; E66.9 Obesity, unspecified
CPT/HCPCS: 36415; 36600; 80053; 81001; 82805; 82962; 85025; 96374; 96375; G0378; J1815; J2405